=== PATIENT | male | born 2000 | race Caucasian/White ===

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

== ENCOUNTER 2023-08-04 07:39 | Emergency (ER) | payer OTHER ==
[~2023-08-04] VITALS: Wt 154.2 kg
[~2023-08-04 07:39] MED LIST changes: +NORCO 5-325 TA1 EACH PO
[2023-08-04 07:47] VITALS: BP 157/96
[2023-08-04] MEDS ORDERED: MELOXICAM15 MG PO (08:47)
== END 2023-08-04 09:00 | disposition home or self-care (01) ==
LOC: ED 07:39
DX: S63.91XA Sprain of unspecified part of right wrist and hand, initial encounter (principal); J45.909 Unspecified asthma, uncomplicated; E11.9 Type 2 diabetes mellitus without complications; F90.9 Attention-deficit hyperactivity disorder, unspecified type; Z90.89 Acquired absence of other organs; V89.2XXA Person injured in unspecified motor-vehicle accident, traffic, initial encounter; Y93.55 Activity, bike riding; Y92.410 Unspecified street and highway as the place of occurrence of the external cause; Y99.8 Other external cause status

== ENCOUNTER 2023-10-10 06:16 | Emergency (ER) | payer OTHER ==
[~2023-10-10] VITALS: Ht 177.8 cm; Wt 136.1 kg
[~2023-10-10 06:16] MED LIST changes: +MELOXICAM15 MG PO
[2023-10-10] MEDS ORDERED: AMOX-CLAV 875-1 EACH PO (06:21)
[2023-10-10 06:23] VITALS: BP 140/76
== END 2023-10-10 06:23 | disposition home or self-care (01) ==
LOC: ED 06:16
DX: H66.91 Otitis media, unspecified, right ear (principal); J45.909 Unspecified asthma, uncomplicated; E11.9 Type 2 diabetes mellitus without complications; F90.9 Attention-deficit hyperactivity disorder, unspecified type; Z90.89 Acquired absence of other organs

== ENCOUNTER → 2024-09-10 | Outpatient (CLI) | payer OTHER ==
[~2024-09-10] MED LIST changes: +AMOX-CLAV 875-1 EACH PO
== END | disposition home or self-care (01) ==
LOC: LAB 09:01
PROVIDERS: ATTEND Family Medicine
DX: R79.89 Other specified abnormal findings of blood chemistry (principal); R53.83 Other fatigue